=== PATIENT | male | born 1950 | race Caucasian/White ===

== ENCOUNTER → 2021-04-04 | Outpatient (CLI) | payer MEDICARE ==
[2021-04-04 12:16] LABS: HCT 46.3 % (39.0-53.0); HGB 15.2 gm/dL (13.0-17.5); MCH 30.9 pg (25.0-35.0); MCHC 32.9 g/dL (31.0-37.0); Mean Platelet Volume 7.4; Platelet Count 179 k/uL (150-450); RBC 4.93 m/uL (4.30-5.90); RDW 13.3 % (11.5-15.5); WBC 7.8 k/uL (3.8-10.6)
[2021-04-04 12:29] LABS: Potassium 4.8 mmol/L (3.5-5.1)
== END | disposition home or self-care (01) ==
LOC: LABPAT 11:13
PROVIDERS: ATTEND Internal Medicine Cardiovascular Disease
DX: Z01.812 Encounter for preprocedural laboratory examination (principal); I25.5 Ischemic cardiomyopathy
CPT/HCPCS: 36415; 80051; 82565; 84520; 85027

== ENCOUNTER 2021-04-09 | Day surgery (SDC) | payer MEDICARE | END 2021-04-09 12:13 | disposition home or self-care (01) | DX: Z45.02 Encounter for adjustment and management of automatic implantable cardiac defibrillator (principal); I25.2 Old myocardial infarction; I25.5 Ischemic cardiomyopathy; Z20.822 Contact with and (suspected) exposure to COVID-19; E78.5 Hyperlipidemia, unspecified; K21.9 Gastro-esophageal reflux disease without esophagitis; Z79.899 Other long term (current) drug therapy; I10 Essential (primary) hypertension | CPT/HCPCS: 93641; 33262; 87635; 71045; C1722; J2250; J0690; J2001; J3010; J2704 ==

== ENCOUNTER 2022-06-20 16:32 | Inpatient (IN) | payer MEDICARE ==
[2022-06-20] MEDS ORDERED: IPRATROPIUM 0.5 MG/2.5 ML NEBU INHALATION STA (17:12)
[2022-06-20] MEDS ORDERED: ALBUTEROL NEBULIZED 2.5 MG/3 ML INHALATION STA (17:12)
[2022-06-20] MEDS ORDERED: DEXAMETHASONE SOD PHOSPHATE 10 MG/ML 1 ML VIAL IV STA (17:13)
--- NOTE | 2022-06-20 17:20 | ED ---
General Adult HPI - General Chief complaint: Shortness of Breath Stated complaint: Chest pains, Sinus infection, DARWIN Time Seen by Provider: 06/20/22 17:06 Source: patient Mode of arrival: ambulatory Limitations: no limitations - History of Present Illness Initial comments: Dictation was produced using [employer] dictation software. please excuse any gr ammatical, word or spelling errors. Chief Complaint: 71-year-old male presents emergency department for acute onset dyspnea History of Present Illness: Patient is 71-year-old male who has past medical history of AICD presents to the emergency room for acute onset shortness of breath. He states his symptoms began last night. Since yesterday's been having a productive cough. Patient also complains of diaphoresis. Patient denies any pulmonary history. He does report heart failure. He has an AICD placed for cardiomyopathy. Denies any fever or chills. Denies any obvious sick contacts. The ROS documented in this emergency department record has been reviewed and confirmed by me. Those systems with pertinent positive or negative responses have been documented in the HPI. All other systems are other negative and/or noncontributory. PHYSICAL EXAM: General Impression: Alert and oriented x3, dyspneic, pale and diaphoretic HEENT: Normocephalic atraumatic, extra-ocular movements intact, pupils equal and reactive to light bilaterally, mucous membranes moist. Cardiovascular: Heart regular rate and rhythm Chest: Dyspneic, bilateral breath sounds without any obvious wheezing, [id number] bedside ultrasound did not show any B lines Abdomen: abdomen soft, non-tender, non-distended, no organomegaly Musculoskeletal: Pulses present and equal in all extremities, no peripheral edema Motor: no focal deficits noted Neurological: CN II-XII grossly intact, no focal motor or sensory deficits noted Skin: Diaphoretic Psych: Normal affect and mood ED course: 71-year-old male presents emergency department for dyspnea signs upon arrival shows 80% on room air, tachycardia of 101 no hypotension or pyrexia. Point of care bedside ultrasound did not suggest heart failure. Patient given breathing treatment with significant improvement after several minutes of updraft. Laboratory evaluation obtained. CBC remarkable. Coag panel is negative. D-dimer is negative. Metabolic panel is within acceptable limits. Cardiac workup is negative. 4 panel viral PCR is negative. Chest x-rays unremarkable. Patient transitioned to nasal cannula. He is reevaluated after breathing treatment of her symptoms. Given patient's presentation upon arrival patient likely benefit from hospital admission for respiratory monitoring and pulmonology consultation. Admitted to [facility] hospitalist group. EKG interpretation: Ventricular rate 1-2, sinus tachycardia,. Interval 170, QS 86, QTC 44. No [place] prolongation, no QTC prolongation, no ST or T-wave changes noted. EKG compared to 01/22/2016 showing no changes. Overall, this EKG is unremarkable - Related Data Home Medications Medication Instructions Recorded Confirmed Digoxin [Lanoxin] 250 mcg PO 1800 01/17/16 04/09/21 Furosemide [Lasix] 20 mg PO 1800 01/17/16 04/09/21 Metoprolol Tartrate 25 mg PO 1800 01/17/16 04/09/21 Potassium Chloride [Klor-Con 20] 20 meq PO 1800 01/17/16 04/09/21 Simvastatin [Zocor] 40 mg PO 1800 01/17/16 04/09/21 Spironolactone [Aldactone] 12.5 mg PO 1800 01/17/16 04/09/21 captopriL [Capoten] 12.5 mg PO 1800 01/17/16 04/09/21 Previous Rx's Medication Instructions Recorded Cephalexin [Keflex] 500 mg PO Q8HR 1 Days #10 cap 04/09/21 Allergies Allergy/AdvReac Type Severity Reaction Status Date / Time No Known Allergies Allergy Verified 06/20/22 17:06 Review of Systems ROS Statement: Those systems with pertinent positive or pertinent negative responses have been documented in the HPI. ROS Other: All systems not noted in ROS Statement are negative. Past Medical History Past Medical History: Hyperlipidemia, Myocardial Infarction ([place]), Skin Disorder Additional Past Medical History / Comment(s): "40% functioning of heart", hx ulcer, sore on rt arm, hemorrhoids, Last Myocardial Infarction Date:: 2005 History of Any Multi-Drug Resistant Organisms: None Reported Past Surgical History: AICD, Heart Catheterization With Stent, Hernia Repair Additional Past Surgical History / Comment(s): 2 stents Past Anesthesia/Blood Transfusion Reactions: Motion Sickness Date of Last Stent Placement:: 2005 Type of Cardiac Device: AICD Device Placement Date:: 2010 Past Psychological History: No Psychological Hx Reported Smoking Status: Never smoker - Past Family History Mother Family Medical History: Cancer General Exam Limitations: no limitations Course Vital Signs 06/20/22 06/20/22 06/20/22 17:02 17:06 17:44 Temperature 97.9 F Pulse Rate 101 H 112 H Respiratory 20 18 Rate Blood Pressure 142/81 130/76 O2 Sat by Pulse 80 L 92 L 92 L Oximetry Medical Decision Making - Lab Data Result diagrams: 06/20/22 17:41 06/20/22 17:41 Lab Results 06/20/22 06/20/22 06/20/22 Range/Units 17:41 17:41 17:41 WBC 12.1 H (3.8-10.6) k/uL RBC 5.02 (4.30-5.90) m/uL Hgb 16.0 (13.0-17.5) gm/dL Hct 47.5 (39.0-53.0) % MCV 94.7 (80.0-100.0) fL MCH 32.0 (25.0-35.0) pg MCHC 33.7 (31.0-37.0) g/dL RDW 12.8 (11.5-15.5) % Plt Count 192 (150-450) k/uL MPV 8.1 Neutrophils % 90 % Lymphocytes % 4 % Monocytes % 4 % Eosinophils % 1 % Basophils % 0 % Neutrophils # 10.9 H (1.3-7.7) k/uL Lymphocytes # 0.5 L (1.0-4.8) k/uL Monocytes # 0.5 (0-1.0) k/uL Eosinophils # 0.1 (0-0.7) k/uL Basophils # 0.0 (0-0.2) k/uL PT 10.1 (9.0-12.0) sec INR 0.9 (<1.2) APTT 24.9 (22.0-30.0) sec D-Dimer 0.45 (<0.60) mg/L FEU Sodium 138 (137-145) mmol/L Potassium 4.7 (3.5-5.1) mmol/L Chloride 96 L (98-107) mmol/L Carbon Dioxide 27 (22-30) mmol/L Anion Gap 15 mmol/L BUN 18 (9-20) mg/dL Creatinine 0.87 (0.66-1.25) mg/dL Est GFR (CKD-EPI)AfAm >90 (>60 ml/min/1.73 sqM) Est GFR (CKD-EPI)NonAf 87 (>60 ml/min/1.73 sqM) Glucose 126 H (74-99) mg/dL Plasma Lactic Acid [place] (0.7-2.0) mmol/L Calcium 9.4 (8.4-10.2) mg/dL Magnesium 1.9 (1.6-2.3) mg/dL Total Bilirubin 1.2 (0.2-1.3) mg/dL AST 49 (17-59) U/L ALT 43 (4-49) U/L Alkaline Phosphatase 63 (38-126) U/L Troponin I (0.000-0.034) ng/mL NT-Pro-B Natriuret Pep pg/mL Total Protein 7.9 (6.3-8.2) g/dL Albumin 5.0 (3.5-5.0) g/dL Influenza Type A (PCR) (Not Detectd) Influenza Type B (PCR) (Not Detectd) RSV (PCR) (Not Detectd) SARS-CoV-2 (PCR) (Not Detectd) 06/20/22 06/20/22 06/20/22 Range/Units 17:41 17:41 17:41 WBC (3.8-10.6) k/uL RBC (4.30-5.90) m/uL Hgb (13.0-17.5) gm/dL Hct (39.0-53.0) % MCV (80.0-100.0) fL MCH (25.0-35.0) pg MCHC (31.0-37.0) g/dL RDW (11.5-15.5) % Plt Count (150-450) k/uL MPV Neutrophils % % Lymphocytes % % Monocytes % % Eosinophils % % Basophils % % Neutrophils # (1.3-7.7) k/uL Lymphocytes # (1.0-4.8) k/uL Monocytes # (0-1.0) k/uL Eosinophils # (0-0.7) k/uL Basophils # (0-0.2) k/uL PT (9.0-12.0) sec INR (<1.2) APTT (22.0-30.0) sec D-Dimer (<0.60) mg/L FEU Sodium (137-145) mmol/L Potassium (3.5-5.1) mmol/L Chloride (98-107) mmol/L Carbon Dioxide (22-30) mmol/L Anion Gap mmol/L BUN (9-20) mg/dL Creatinine (0.66-1.25) mg/dL Est GFR (CKD-EPI)AfAm (>60 ml/min/1.73 sqM) Est GFR (CKD-EPI)NonAf (>60 ml/min/1.73 sqM) Glucose (74-99) mg/dL Plasma Lactic Acid [place] 1.5 (0.7-2.0) mmol/L Calcium (8.4-10.2) mg/dL Magnesium (1.6-2.3) mg/dL Total Bilirubin (0.2-1.3) mg/dL AST (17-59) U/L ALT (4-49) U/L Alkaline Phosphatase (38-126) U/L Troponin I <0.012 (0.000-0.034) ng/mL NT-Pro-B Natriuret Pep 311 pg/mL Total Protein (6.3-8.2) g/dL Albumin (3.5-5.0) g/dL Influenza Type A (PCR) (Not Detectd) Influenza Type B (PCR) (Not Detectd) RSV (PCR) (Not Detectd) SARS-CoV-2 (PCR) (Not Detectd) 06/20/22 Range/Units 17:41 WBC (3.8-10.6) k/uL RBC (4.30-5.90) m/uL Hgb (13.0-17.5) gm/dL Hct (39.0-53.0) % MCV (80.0-100.0) fL MCH (25.0-35.0) pg MCHC (31.0-37.0) g/dL RDW (11.5-15.5) % Plt Count (150-450) k/uL MPV Neutrophils % % Lymphocytes % % Monocytes % % Eosinophils % % Basophils % % Neutrophils # (1.3-7.7) k/uL Lymphocytes # (1.0-4.8) k/uL Monocytes # (0-1.0) k/uL Eosinophils # (0-0.7) k/uL Basophils # (0-0.2) k/uL PT (9.0-12.0) sec INR (<1.2) APTT (22.0-30.0) sec D-Dimer (<0.60) mg/L FEU Sodium (137-145) mmol/L Potassium (3.5-5.1) mmol/L Chloride (98-107) mmol/L Carbon Dioxide (22-30) mmol/L Anion Gap mmol/L BUN (9-20) mg/dL Creatinine (0.66-1.25) mg/dL Est GFR (CKD-EPI)AfAm (>60 ml/min/1.73 sqM) Est GFR (CKD-EPI)NonAf (>60 ml/min/1.73 sqM) Glucose (74-99) mg/dL Plasma Lactic Acid [place] (0.7-2.0) mmol/L Calcium (8.4-10.2) mg/dL Magnesium (1.6-2.3) mg/dL Total Bilirubin (0.2-1.3) mg/dL AST (17-59) U/L ALT (4-49) U/L Alkaline Phosphatase (38-126) U/L Troponin I (0.000-0.034) ng/mL NT-Pro-B Natriuret Pep pg/mL Total Protein (6.3-8.2) g/dL Albumin (3.5-5.0) g/dL Influenza Type A (PCR) Not Detected (Not Detectd) Influenza Type B (PCR) Not Detected (Not Detectd) RSV (PCR) Not Detected (Not Detectd) SARS-CoV-2 (PCR) Not Detected (Not Detectd) Critical Care Time Critical Care Time: Yes Total Critical Care Time: 33 Disposition Clinical Impression: Respiratory failure Disposition: ADMITTED IP TO THIS HOSP Condition: Serious Referrals: James Guillen DO [Primary Care Provider] - 1-2 days Decision Time: 18:49
[2022-06-20 17:49] LABS: Basophils % (A) 0 %; Eosinophils # (A) 0.1 k/uL (0-0.7); Eosinophils % (A) 1 %; HCT 47.5 % (39.0-53.0); Lymphocytes # (A) 0.5 k/uL (1.0-4.8); Lymphocytes % (A) 4 %; MCHC 33.7 g/dL (31.0-37.0); MCV 94.7 fL (80.0-100.0); Mean Platelet Volume 8.1; Monocytes # (A) 0.5 k/uL (0-1.0); Monocytes % (A) 4 %; Neutrophils # (A) 10.9 k/uL (1.3-7.7); Neutrophils % (A) 90 %; Platelet Count 192 k/uL (150-450); RBC 5.02 m/uL (4.30-5.90); RDW 12.8 % (11.5-15.5); WBC 12.1 k/uL (3.8-10.6)
--- NOTE | 2022-06-20 17:51 | XR ---
EXAMINATION TYPE: XR chest 1V portable DATE OF EXAM: 06/20/2022 COMPARISON: 04/09/2021 HISTORY: Short of breath TECHNIQUE: FINDINGS: There is no heart failure nor confluent pneumonic infiltrate. There is left axillary pacema ker. Costophrenic angles are clear. IMPRESSION: No active cardiopulmonary disease. No change.
[2022-06-20 18:02] LABS: ALT 43 U/L (4-49); AST 49 U/L (17-59); African American GFR (CKD) >90 (>60 ml/min/1.73 sqM); Alkaline Phosphatase 63 U/L (38-126); Anion Gap 15 mmol/L; Blood Urea Nitrogen 18 mg/dL (9-20); Calcium 9.4 mg/dL (8.4-10.2); Carbon Dioxide 27 mmol/L (22-30); Chloride 96 mmol/L (98-107); Glucose 126 mg/dL (74-99); Magnesium 1.9 mg/dL (1.6-2.3); Non-African American GFR(CKD) 87 (>60 ml/min/1.73 sqM); Sodium 138 mmol/L (137-145); Total Bilirubin 1.2 mg/dL (0.2-1.3); Total Protein 7.9 g/dL (6.3-8.2)
[2022-06-20 18:03] LABS: Potassium 4.7 mmol/L (3.5-5.1)
[2022-06-20 18:06] LABS: INR 0.9 (<1.2); Partial Thromboplastin Time 24.9 sec (22.0-30.0); Prothrombin Time 10.1 sec (9.0-12.0)
[2022-06-20] MEDS ORDERED: NALOXONE 0.4 MG/ML 1 ML VIAL IVP PRN (18:46)
[2022-06-20] MEDS ORDERED: ACETAMINOPHEN TAB 325 MG TAB PO PRN (18:46)
[2022-06-20] MEDS: IPRATROPIUM-ALBUTEROL 3 ML NEB INHALATION SCH (20:21)
[2022-06-21] MEDS: IPRATROPIUM-ALBUTEROL 3 ML NEB INHALATION SCH ×4 (07:21→20:00)
[2022-06-21] MEDS: predniSONE 20 MG TAB PO SCH (08:29)
[2022-06-21] MEDS: DOXYCYCLINE 100 MG CAP PO SCH ×2 (13:39→20:16)
--- NOTE | 2022-06-21 13:40 | P.CNPUL ---
History of Present Illness Consult date: 06/21/22 Requesting physician: Donnell Early Reason for consult: dyspnea, hypoxemia, other Chief complaint: Shortness of breath. History of present illness: Pulmonary consult dated 06/21/2022. 71-year-old who was seen in the emergency department on June 20. He apparently came in because of shortness of breath. He states that he apparently had shortness of breath for about a day or so prior to admission. He also complains of a bit of a cough, which is occasionally productive. There is no fever or chills. There was no chest pain or chest discomfort. The patient was seen in the emergency room. Chest x-ray was normal. He was admitted with shortness of breath and hypoxemia. Apparently initially his saturations were in the 80s. Currently, he is on 2 L of oxygen, and he is not receiving any IV fluids. He does not appear to be any distress. No conversational dyspnea, or use of accessory muscles. No audible wheezing. White count 12.1, hemoglobin 16, hematocrit 47.5, and platelet count 292,000. Coagulation profiles are all normal including a d-dimer of 0.45. Chemistry is essentially normal. Glucose 126, chloride 96. Troponins were negative. N-terminal proBNP was normal. T esting for respiratory syncytial virus, influenza, and coronavirus, were all negative. Chest x-ray shows an AICD device, but otherwise, the chest x-ray is normal. The patient apparently is a lifelong nontobacco user. He does have a history of hyperlipidemia, myocardial infarction, cardiomyopathy, CAD with stent placement, and previous hernia repair. Review of Systems REVIEW OF SYSTEMS: CONSTITUTIONAL: [Negative.] NEUROLOGIC: [ Negative.] HEENT: [ Negative.] CARDIAC: [Negative.] PULMONARY: Shortness of breath, cough, with occasional phlegm production. GI: [Negative.] : [Negative.] RHEUMATOLOGIC: [ Negative.] IMMUNOLOGIC: [ Negative.] ENDOCRINE: [Negative. ] DERMATOLOGIC: [Negative.] Past Medical History Past Medical History: Hyperlipidemia, Myocardial Infarction ([place]), Skin Disorder Additional Past Medical History / Comment(s): "40% functioning of heart", hx ulcer, sore on rt arm, hemorrhoids, Last Myocardial Infarction Date:: 2005 History of Any Multi-Drug Resistant Organisms: None Reported Past Surgical History: AICD, Heart Catheterization With Stent, Hernia Repair Additional Past Surgical History / Comment(s): 2 stents Past Anesthesia/Blood Transfusion Reactions: Motion Sickness Date of Last Stent Placement:: 2005 Type of Cardiac Device: AICD Device Placement Date:: 2010 Past Psychological History: No Psychological Hx Reported Smoking Status: Never smoker - Past Family History Mother Family Medical History: Cancer Medications and Allergies Home Medications Medication Instructions Recorded Confirmed Type Digoxin [Lanoxin] 250 mcg PO DAILY@169901/17/16 06/20/22 History Furosemide [Lasix] 20 mg PO DAILY@169901/17/16 06/20/22 History Metoprolol Tartrate 25 mg PO DAILY@169901/17/16 06/20/22 History Potassium Chloride [Klor-Con 20] 20 meq PO DAILY@169901/17/16 06/20/22 History Simvastatin [Zocor] 40 mg PO DAILY@169901/17/16 06/20/22 History Spironolactone [Aldactone] 12.5 mg PO DAILY@169901/17/16 06/20/22 History captopriL [Capoten] 12.5 mg PO DAILY@169901/17/16 06/20/22 History Allergies Allergy/AdvReac Type Severity Reaction Status Date / Time No Known Allergies Allergy Verified 06/20/22 17:06 Physical Exam Osteopathic Statement: *. No significant issues noted on an osteopathic structural exam other than those noted in the History and Physical/Consult. Vitals: Vital Signs Temp Pulse Pulse Resp BP BP Pulse Ox 06/21/22 13:08 98.7 F 96 20 118/66 92 L 06/21/22 11:16 96 06/21/22 11:03 92 06/21/22 08:00 97.9 F 107 H 18 131/74 94 L 06/21/22 07:33 102 H 06/21/22 07:23 96 96 06/21/22 06:39 80 18 106/55 98 06/21/22 04:21 82 06/21/22 00:33 105 H 18 120/82 93 L 06/20/22 20:31 101 H 06/20/22 20:24 99 06/20/22 17:44 112 H 18 130/76 92 L 06/20/22 17:06 92 L 06/20/22 17:02 97.9 F 101 H 20 142/81 80 L Intake and Output 06/20/22 06/21/22 06/21/22 22:59 06:59 14:59 Output Total 700 800 Balance -700 -800 Output: Urine 700 800 Other: # Voids 3 Weight 96.615 kg 96.615 kg No acute distress, oriented 3. No respiratory distress, audible wheezing, or use of accessory muscles. The patient is currently on 2 L of oxygen. HEENT examination is grossly unremarkable. Neck supple. Full range of motion. No adenopathy thyromegaly or neck vein dist ention. Cardiovascular examination reveals regular rhythm rate. S1-S2 normal. No S3 or S4. No discernible murmur noted. Heart rate 90 bpm. Lungs reveal mild rhonchi. No wheezes. No crackles. Breath sounds equal bilaterally. Saturations are 94% on 2 L. Abdomen soft bowel sounds are heard. No masses or tenderness. Extremities are intact. No cyanosis clubbing or edema. Skin is without rash or lesion. Neurologic examination is brief but nonfocal. Results - Laboratory Findings CBC and BMP: 06/20/22 17:41 06/20/22 17:41 PT/INR, D-dimer PT 10.1 sec (9.0-12.0) 06/20/22 17:41 INR 0.9 (<1.2) 06/20/22 17:41 D-Dimer 0.45 mg/L FEU (<0.60) 06/20/22 17:41 Abnormal lab findings: Abnormal Labs 06/20/22 06/20/22 17:41 17:41 WBC 12.1 H Neutrophils # 10.9 H Lymphocytes # 0.5 L Chloride 96 L Glucose 126 H - Diagnostic Findings Chest x-ray: image reviewed Assessment and Plan Assessment: Acute tracheobronchitis with bronchospasm, and resultant hypoxemia. History of cardiomyopathy, status post AICD. History of CAD, with previous stent placement. History of myocardial infarction. History of hyperlipidemia. Plan: Plan dated 06/21/2022. The patient was started on prednisone by the ER physician. In addition, the patient was given updrafts in the form of albuterol sulfate and ipratropium bromide. The patient was also placed on doxycycline 100 mg twice a day. Additional recommendations and suggestions are forthcoming. We'll continue to follow. Hopeful discharge in the next 24-48 hours. Time with Patient: Greater than 30
--- NOTE | 2022-06-21 16:20 | P.HPIM ---
History of Present Illness H&P Date: 06/21/22 Chief Complaint: Shortness of Breath 71-year-old male who has past medical history of AICD presents to the emergency room for acute onset shortness of breath. He states his symptoms began last night. Since yesterday's been having a productive cough. Patient also complain s of diaphoresis. Patient denies any pulmonary history. He does report heart failure. He has an AICD placed for cardiomyopathy. Denies any fever or chills. Denies any obvious sick contacts. Point of care bedside ultrasound did not suggest heart failure. Patient given breathing treatment with significant improvement after several minutes of updraft. Laboratory evaluation obtained. CBC remarkable. Coag panel is negative. D-dimer is negative. Metabolic panel is within acceptable limits. Cardiac workup is negative. 4 panel viral PCR is negative. Chest x-rays unremarkable. Patient transitioned to nasal cannula. EKG interpretation: Ventricular rate 1-2, sinus tachycardia,. Interval 170, QS 86, QTC 44. No [place] prolongation, no QTC prolongation, no ST or T-wave changes noted. EKG compared to 01/22/2016 showing no changes. Overall, this EKG is unremarkable Review of Systems REVIEW OF SYSTEMS: CONSTITUTIONAL: No fever, no malaise, no fatigue. HEENT: No recent visual problems or hearing problems. Denied any sore throat. CARDIOVASCULAR: No chest pain, orthopnea, PND, no palpitations, no syncope. PULMONARY: No shortness of breath, no cough, no hemoptysis. GASTROINTESTINAL: No diarrhea, no nausea, no vomiting, no abdominal pain. NEUROLOGICAL: No headaches, no weakness, no numbness. HEMATOLOGICAL: Denies any bleeding or petechiae. GENITOURINARY: Denies any burning micturition, frequency, or urgency. MUSCULOSKELETAL/RHEUMATOLOGICAL: Denies any joint pain, swelling, or any muscle pain. ENDOCRINE: Denies any polyuria or polydipsia. The rest of the 14-point review of systems is negative. Past Medical History Past Medical History: Hyperlipidemia, Myocardial Infarction ([place]), Skin Disorder Additional Past Medical History / Comment(s): "40% functioning of heart", hx ulcer, sore on rt arm, hemorrhoids, Last Myocardial Infarction Date:: 2005 History of Any Multi-Drug Resistant Organisms: None Reported Past Surgical History: AICD, Heart Catheterization With Stent, Hernia Repair Additional Past Surgical History / Comment(s): 2 stents Past Anesthesia/Blood Transfusion Reactions: Motion Sickness Date of Last Stent Placement:: 2005 Type of Cardiac Device: AICD Device Placement Date:: 2010 Past Psychological History: No Psychological Hx Reported Smoking Status: Never smoker - Past Family History Mother Family Medical History: Cancer Medications and Allergies Home Medications Medication Instructions Recorded Confirmed Type Digoxin [Lanoxin] 250 mcg PO DAILY@169901/17/16 06/20/22 History Furosemide [Lasix] 20 mg PO DAILY@169901/17/16 06/20/22 History Metoprolol Tartrate 25 mg PO DAILY@169901/17/16 06/20/22 History Potassium Chloride [Klor-Con 20] 20 meq PO DAILY@169901/17/16 06/20/22 History Simvastatin [Zocor] 40 mg PO DAILY@169901/17/16 06/20/22 History Spironolactone [Aldactone] 12.5 mg PO DAILY@169901/17/16 06/20/22 History captopriL [Capoten] 12.5 mg PO DAILY@169901/17/16 06/20/22 History Allergies Allergy/AdvReac Type Severity Reaction Status Date / Time No Known Allergies Allergy Verified 06/20/22 17:06 Physical Exam Vitals: Vital Signs Temp Pulse Pulse Resp BP BP Pulse Ox 06/21/22 08:00 97.9 F 107 H 18 131/74 94 L 06/21/22 07:33 102 H 06/21/22 07:23 96 96 06/21/22 06:39 80 18 106/55 98 06/21/22 04:21 82 06/21/22 00:33 105 H 18 120/82 93 L 06/20/22 20:31 101 H 06/20/22 20:24 99 06/20/22 17:44 112 H 18 130/76 92 L 06/20/22 17:06 92 L 06/20/22 17:02 97.9 F 101 H 20 142/81 80 L Intake and Output 06/20/22 06/21/22 06/21/22 22:59 06:59 14:59 Output Total 700 800 Balance -700 -800 Output: Urine 700 800 Other: # Voids 3 Weight 96.615 kg No acute distress, oriented 3. No respiratory distress, audible wheezing, or use of accessory muscles. The patient is currently on 2 L of oxygen. HEENT examination is grossly unremarkable. Neck supple. Full range of motion. No adenopathy thyromegaly or neck vein distention. Cardiovascular examination reveals regular rhythm rate. S1-S2 normal. No S3 or S4. No discernible murmur noted. Heart rate 90 bpm. Lungs reveal mild rhonchi. No wheezes. No crackles. Breath sounds equal bilaterally. Saturations are 94% on 2 L. Abdomen soft bowel sounds are heard. No masses or tenderness. Extremities are intact. No cyanosis clubbing or edema. Skin is without rash or lesion. Neurologic examination is brief but nonfocal. Results CBC & Chem 7: 06/20/22 17:41 06/20/22 17:41 Labs: Abnormal Lab Results - Last 24 Hours (Table) 06/20/22 06/20/22 Range/Units 17:41 17:41 WBC 12.1 H (3.8-10.6) k/uL Neutrophils # 10.9 H (1.3-7.7) k/uL Lymphocytes # 0.5 L (1.0-4.8) k/uL Chloride 96 L (98-107) mmol/L Glucose 126 H (74-99) mg/dL Assessment and Plan Assessment: 1. Dyspnea/hypoxia; acute tracheobronchitis/bronchospasm - Patient has been placed on prednisone at 50 mg daily; we will continue with current dose; DuoNeb nebulizer treatment 4 times a day and when necessary - Patient is placed on doxycycline 100 mg twice a day 2. Cardiomyopathy; status post AICD - Patient is currently on digoxin, captopril, Lasix, Aldactone and statin therapy 3. History of CAD; previous stent placement - History of [place] in the past; continue with beta blockers and statin therapy 4. Hyperlipidemia; Zocor 40 mg daily 5. Hypertension; captopril 12.5 mg daily; metoprolol 25 mg daily DVT prophylaxis; SCDs CODE STATUS; full code
[2022-06-21] MEDS: ATORVASTATIN 20 MG TAB PO SCH (17:17)
[2022-06-21] MEDS: SPIRONOLACTONE 25 MG TAB PO SCH (17:18)
[2022-06-21] MEDS: DIGOXIN 250 MCG TAB PO SCH (17:18)
[2022-06-21] MEDS: FUROSEMIDE 20 MG TAB PO SCH (17:18)
[2022-06-21] MEDS: POTASSIUM CHLORIDE ER 20 MEQ TAB.ER PO SCH (17:18)
[2022-06-21] MEDS: METOPROLOL TARTRATE 25 MG TAB PO SCH (17:18)
[2022-06-22] MEDS: IPRATROPIUM-ALBUTEROL 3 ML NEB INHALATION SCH ×4 (07:19→18:56)
[2022-06-22] MEDS: predniSONE 20 MG TAB PO SCH (07:21)
[2022-06-22] MEDS: DOXYCYCLINE 100 MG CAP PO SCH ×2 (07:21→22:14)
[2022-06-22 09:28] LABS: Basophils # (A) 0.01 X 10*3/uL (0.00-0.10); Basophils % (A) 0.1 %; Eosinophils # (A) 0.07 X 10*3/uL (0.04-0.35); Eosinophils % (A) 0.5 %; HCT 44.9 % (39.6-50.0); HGB 14.6 g/dL (13.0-17.0); Immature Grans, Automated 0.4 %; Lymphocytes # (A) 1.63 X 10*3/uL (0.90-5.00); Lymphocytes % (A) 12.2 %; MCH 30.9 pg (27.0-32.0); MCHC 32.5 g/dL (32.0-37.0); MCV 95.1 fL (80.0-97.0); Mean Platelet Volume 10.2 fL (9.5-12.2); Monocytes # (A) 1.18 X 10*3/uL (0.20-1.00); Monocytes % (A) 8.8 %; NRBC Per 100 WBC 0 /100 WBCS (0.0-0.0); Neutrophils # (A) 10.45 X 10*3/uL (1.80-7.70); Platelet Count 212 X 10*3/uL (140-440); RBC 4.72 X 10*6/uL (4.40-5.60); RDW 13.1 % (11.5-14.5); WBC 13.39 X 10*3/uL (4.50-10.00)
[2022-06-22 09:42] LABS: African American GFR (CKD) 77.9 (60.0-200.0); Anion Gap 10.6 mmol/L (10.00-18.00); BUN/Creat Ratio 21.55 Ratio (12.00-20.00); Blood Urea Nitrogen 23.7 mg/dL (9.0-27.0); Carbon Dioxide 29.4 mmol/L (20.0-27.5); Non-African American GFR(CKD) 67.2 (60.0-200.0); Potassium 4.5 mmol/L (3.5-5.5)
--- NOTE | 2022-06-22 12:03 | P.PN ---
Subjective Progress Note Date: 06/22/22 Principal diagnosis: Shortness of breath/hypoxemia. Pulmonary consult dated 06/21/2022. 71-year-old who was seen in the emergency department on June 20. He apparently came in because of shortness of breath. He states that he apparently had shortness of breath for about a day or so prior to admission. He also complains of a bit of a cough, which is occasionally productive. There is no fever or chills. There was no chest pain or chest discomfort. The patient was seen in the emergency room. Chest x-ray was normal. He was admitted with shortness of breath and hypoxemia. Apparently initially his saturations were in the 80s. Currently, he is on 2 L of oxygen, and he is not receiving any IV fluids. He does not appear to be any distress. No conversational dyspnea, or use of accessory muscles. No audible wheezing. White count 12.1, hemoglobin 16, hematocrit 47.5, and platelet count 292,000. Coagulation profiles are all normal including a d-dimer of 0.45. Chemistry is essentially normal. Glucose 126, chloride 96. Troponins were negative. N-terminal proBNP was normal. Testing for respiratory syncytial virus, influenza, and coronavirus, were all n egative. Chest x-ray shows an AICD device, but otherwise, the chest x-ray is normal. The patient apparently is a lifelong nontobacco user. He does have a history of hyperlipidemia, myocardial infarction, cardiomyopathy, CAD with stent placement, and previous hernia repair. Progress note dated 06/22/2022. Currently, the patient's on 2 L. Saturations are 93%. He's not receiving any IV fluids. The patient was admitted to the hospital with a diagnosis of hypoxemia, and acute bronchitis. Chest x-ray did not show a infiltrate/pneumonia. The patient does have a history of hyperlipidemia, my ocardial infarction, cardiomyopathy, CAD, stent placement, and previous AICD placement. Currently labs include a white count of 13.4, hemoglobin 14.6, hematocrit 44.9, and a platelet count of 212,000. Sodium 142, potassium 4.5, chlorides 102, CO2 29, BUN 24, creatinine 1.1. Testing for influenza A, influenza B, respiratory syncytial virus, and coronavirus, were all negative. The patient was given breathing treatments, and prednisone. He was also given doxycycline by the hospital service. Objective - Vital Signs Vital signs: Vital Signs Temp 98 F 06/22/22 11:36 Pulse 90 06/22/22 11:36 Resp 20 06/22/22 11:36 BP 111/70 06/22/22 11:36 Pulse Ox 95 06/22/22 11:36 FiO2 Intake & Output 06/21/22 06/22/22 06/22/22 18:59 06:59 18:59 Intake Total 485 120 Balance 485 120 Weight 96.615 kg Intake: Oral 485 120 Other: Voiding Method Toilet Urinal # Voids 4 2 - Exam No acute distress, oriented 3. No respiratory distress, audible wheezing, or use of accessory muscles. The patient is currently on 2 L of oxygen. HEENT examination is grossly unremarkable. Neck supple. Full range of motion. No adenopathy thyromegaly or neck vein distention. Cardiovascular examination reveals regular rhythm rate. S1-S2 normal. No S3 or S4. No discernible murmur noted. Heart rate 88 bpm. Lungs reveal mild rhonchi. No wheezes. No crackles. Breath sounds equal bilaterally. Saturations are 93% on 2 L. Abdomen soft bowel sounds are heard. No masses or tenderness. Extremities are intact. No cyanosis clubbing or edema. Skin is without rash or lesion. Neurologic examination is brief but nonfocal. - Labs CBC & Chem 7: 06/22/22 05:18 06/22/22 05:18 Labs: Abnormal Lab Results - Last 24 Hours (Table) 06/22/22 06/22/22 Range/Units 05:18 05:18 WBC 13.39 H (4.50-10.00) X 10*3/uL Immature Gran # 0.05 H (0.00-0.04) X 10*3/uL Neutrophils # 10.45 H (1.80-7.70) X 10*3/uL Monocytes # 1.18 H (0.20-1.00) X 10*3/uL Carbon Dioxide 29.4 H (20.0-27.5) mmol/L BUN/Creatinine Ratio 21.55 H (12.00-20.00) Ratio Assessment and Plan Assessment: Acute tracheobronchitis with bronchospasm, and resultant hypoxemia. History of cardiomyopathy, status post AICD. History of CAD, with previous stent placement. History of myocardial infarction. History of hyperlipidemia. Plan: Plan dated 06/21/2022. The patient was started on prednisone by the ER physician. In addition, the patient was given updrafts in the form of albuterol sulfate and ipratropium bromide. The patient was also placed on doxycycline 100 mg twice a day. Additional recommendations and suggestions are forthcoming. We'll continue to follow. Hopeful discharge in the next 24-48 hours. Plan dated 06/22/2022. The patient appears to be relatively stable. Respiratory we'll try to wean his oxygen off. He was given breathing treatments, prednisone and doxycycline. His chest x-ray did not reveal an infiltrate. We will continue to follow make recommendations along the way. Possible discharge in the next 24-48 hours or sooner. Prognosis is guarded. Time with Patient: Less than 30
--- NOTE | 2022-06-22 18:09 | P.PN ---
Subjective Progress Note Date: 06/22/22 Principal diagnosis: Dyspnea/hypoxia; acute tracheobronchitis/bronchospasm 71-year-old male who has past medical history of AICD presents to the emergency room for acute onset shortness of breath. He states his symptoms began last night. Since yesterday's been having a productive cough. Patient also complains of diaphoresis. Patient denies any pulmonary history. He does report heart failure. He has an AICD placed for cardiomyopathy. Denies any fever or chills. Denies any obvious sick contacts. Point of care bedside ultrasound did not suggest heart failure. Patient given breathing treatment with significant improvement after several minutes of updraft. Laboratory evaluation obtained. CBC remarkable. Coag panel is negative. D-dimer is negative. Metabolic panel is within acceptable limits. Cardiac workup is negative. 4 panel viral PCR is negative. Chest x-rays unremarkable. Patient transitioned to nasal cannula. EKG interpretation: Ventricular rate 1-2, sinus tachycardia,. Interval 170, QS 86, QTC 44. No [place] prolongation, no QTC prolongation, no ST or T-wave changes noted. EKG compared to 01/22/2016 showing no changes. Overall, this EKG is unremarkable 06/22/2022 patient is seen and evaluated in room at bedside. remains on O2 at 2 L per nasal cannula with O2 saturation of 93%. He's not receiving any IV fluids. The patient was admitted to the hospital with a diagnosis of hypoxemia, and acute bronchitis. Chest x-ray did not show a infiltrate/pneumonia. The patient does have a history of hyperlipidemia, myocardial infarction, cardiomyopathy, CAD, stent placement, and previous AICD placement. Currently labs include a white count of 13.4, hemoglobin 14.6, hematocrit 44.9, and a platelet count of 212,000. Sodium 142, potassium 4.5, chlorides 102, CO2 29, BUN 24, creatinine 1.1. Testing for influenza A, influenza B, respiratory syncytial virus, and coronavirus, were all negative. The patient was given breathing treatments, and prednisone. He was also given doxycycline -- Respiratory we'll try to wean his oxygen off. He was given breathing treatments, prednisone and doxycycline. His chest x-ray did not reveal an infiltrate. Possible discharge in the next 24-48 hours or sooner. Prognosis is guarded. Objective - Vital Signs Vital signs: Vital Signs Temp 98 F 06/22/22 11:36 Pulse 90 06/22/22 11:36 Resp 20 06/22/22 11:36 BP 111/70 06/22/22 11:36 Pulse Ox 95 06/22/22 11:36 FiO2 Intake & Output 06/21/22 06/22/22 06/22/22 18:59 06:59 18:59 Intake Total 485 120 Balance 485 120 Weight 96.615 kg Intake: Oral 485 120 Other: Voiding Method Toilet Urinal # Voids 4 2 - Exam No acute distress, oriented 3. No respiratory distress, audible wheezing, or use of accessory muscles. The patient is currently on 2 L of oxygen. HEENT examination is grossly unremarkable. Neck supple. Full range of motion. No adenopathy thyromegaly or neck vein distention. Cardiovascular examination reveals regular rhythm rate. S1-S2 normal. No S3 or S4. No discernible murmur noted. Heart rate 90 bpm. Lungs reveal mild rhonchi. No wheezes. No crackles. Breath sounds equal bilaterally. Saturations are 94% on 2 L. Abdomen soft bowel sounds are heard. No masses or tenderness. Extremities are intact. No cyanosis clubbing or edema. Skin is without rash or lesion. Neurologic examination is brief but nonfocal. - Labs CBC & Chem 7: 06/22/22 05:18 06/22/22 05:18 Labs: Abnormal Lab Results - Last 24 Hours (Table) 06/22/22 06/22/22 Range/Units 05:18 05:18 WBC 13.39 H (4.50-10.00) X 10*3/uL Immature Gran # 0.05 H (0.00-0.04) X 10*3/uL Neutrophils # 10.45 H (1.80-7.70) X 10*3/uL Monocytes # 1.18 H (0.20-1.00) X 10*3/uL Carbon Dioxide 29.4 H (20.0-27.5) mmol/L BUN/Creatinine Ratio 21.55 H (12.00-20.00) Ratio Assessment and Plan Assessment: 1. Dyspnea/hypoxia; acute tracheobronchitis/bronchospasm - Patient has been placed on prednisone at 50 mg daily; we will continue with current dose; DuoNeb nebulizer treatment 4 times a day and when necessary - Patient is placed on doxycycline 100 mg twice a day 2. Cardiomyopathy; status post AICD - Patient is currently on digoxin, captopril, Lasix, Aldactone and statin therapy 3. History of CAD; previous stent placement - History of [place] in the past; continue with beta blockers and statin therapy 4. Hyperlipidemia; Zocor 40 mg daily 5. Hypertension; captopril 12.5 mg daily; metoprolol 25 mg daily DVT prophylaxis; SCDs CODE STATUS; full code
[2022-06-22] MEDS: ATORVASTATIN 20 MG TAB PO SCH (18:15)
[2022-06-22] MEDS: FUROSEMIDE 20 MG TAB PO SCH (18:15)
[2022-06-22] MEDS: SPIRONOLACTONE 25 MG TAB PO SCH (18:16)
[2022-06-22] MEDS: DIGOXIN 250 MCG TAB PO SCH (18:16)
[2022-06-22] MEDS: POTASSIUM CHLORIDE ER 20 MEQ TAB.ER PO SCH (18:16)
[2022-06-22] MEDS: METOPROLOL TARTRATE 25 MG TAB PO SCH (18:16)
[2022-06-23] MEDS: IPRATROPIUM-ALBUTEROL 3 ML NEB INHALATION SCH ×3 (08:21→15:43)
[2022-06-23] MEDS: predniSONE 20 MG TAB PO SCH (08:57)
[2022-06-23] MEDS: DOXYCYCLINE 100 MG CAP PO SCH (08:57)
[2022-06-23 11:34] VITALS: BP 98/68; RESP 17; TEMP 98.2
[2022-06-23 11:42] VITALS: PULSE 74
--- NOTE | 2022-06-23 14:01 | P.PN ---
Subjective Progress Note Date: 06/23/22 71-year-old who was seen in the emergency department on June 20. He apparently came in because of shortness of breath. He states that he apparently had shortness of breath for about a day or so prior to admission. He also complains of a bit of a cough, which is occasionally productive. There is no fever or chills. There was no chest pain or chest discomfort. The patient was seen in the emergency room. Chest x-ray was normal. He was admitted with shortness of breath and hypoxemia. Apparently initially his saturations were in the 80s. Currently, he is on 2 L of oxygen, and he is not receiving any IV fluids. He does not appear to be any distress. No conversational dyspnea, or use of accessory muscles. No audible wheezing. White count 12.1, hemoglobin 16, hematocrit 47.5, and platelet count 292,000. Coagulation profiles are all normal including a d-dimer of 0.45. Chemistry is essentially normal. Glucose 126, chloride 96. Troponins were negative. N-terminal proBNP was normal. Testing for respiratory syncytial virus, influenza, and coronavirus, were all negative. Chest x-ray shows an AICD device, but otherwise, the chest x-ray is normal. The patient apparently is a lifelong nontobacco user. He does have a history of hyperlipidemia, myocardial infarction, cardiomyopathy, CAD with stent placement, and previous hernia repair. Progress note dated 06/22/2022. Currently, the patient's on 2 L. Saturations are 93%. He's not receiving any IV fluids. The patient was admitted to the hospital with a diagnosis of hypoxemia, and acute bronchitis. Chest x-ray did not show a infiltrate/pneumonia. The patient does have a history of hyperlipidemia, myocardial infarction, cardiomyopathy, CAD, stent placement, and previous AICD placement. Currently labs include a white count of 13.4, hemoglobin 14.6, hematocrit 44.9, and a platelet count of 212,000. Sodium 142, potassium 4.5, chlorides 102, CO2 29, BUN 24, creatinine 1.1. Testing for influenza A, influenza B, respiratory syncytial virus, and coronavirus, were all negative. The patient was given breathing treatments, and prednisone. He was also given doxycycline by the hospital service. Carrillo steroids which is final continue that 1 to be feeling better On today's evaluation of 06/23/2022, the patient is being seen for a follow-up. Overall, is doing better. His vital screen came back negative including influenza A and influenza B RSV and coronavirus. The patient was treated empirically with doxycycline and the patient is currently on a prednisone burst taper starting with 40 mg. His oxidation is improved and the patient is not using oxygen at this point in time. No fever. No chills. No signs of any acute bacterial infection. The patient is a lifetime nonsmoker. No history of asthma. Most of any previous respiratory infections or pneumonias. He is known to have cardiomyopathy and the patient has an AICD in place. ProBNP level was nonelevated. He is also known to have CAD and the patient has a coronary stent in place. Blood work shows some minor leukocytosis otherwise the rest of the blood work essentially within normal limits. Objective - Vital Signs Vital signs: Vital Signs Temp 98.2 F 06/23/22 11:04 Pulse 74 06/23/22 11:41 Resp 17 06/23/22 11:04 BP 98/68 06/23/22 11:04 Pulse Ox 93 L 06/23/22 11:04 FiO2 Intake & Output 06/22/22 06/23/22 06/23/22 18:59 06:59 18:59 Intake Total 240 360 Balance 240 360 Intake: Oral 240 360 Other: Voiding Method Toilet Toilet Urinal Urinal # Voids 4 3 - Exam No acute distress, oriented 3. No respiratory distress, audible wheezing, or use of accessory muscles. The patient is currently on room air oxygen HEENT examination is grossly unremarkable. Neck supple. Full range of motion. No adenopathy thyromegaly or neck vein distention. Cardiovascular examination reveals regular rhythm rate. S1-S2 normal. No S3 or S4. No discernible murmur noted. Heart rate 88 bpm. Lungs reveal mild rhonchi. No wheezes. No crackles. Breath sounds equal bilaterally. Abdomen soft bowel sounds are heard. No masses or tenderness. Extremities are intact. No cyanosis clubbing or edema. Skin is without rash or lesion. Neurologic examination is brief but nonfocal. - Labs CBC & Chem 7: 06/22/22 05:18 06/22/22 05:18 Assessment and Plan Plan: Acute tracheobronchitis with bronchospasm, and resultant hypoxemia. Clinically the patient is improving and the patient is currently on room air oxygen. He is on prednisone burst taper and he is also on doxycycline. History of cardiomyopathy, status post AICD. History of CAD, with previous stent placement. History of myocardial infarction. History of hyperlipidemia. Plan: Clinically stable. Complete a course of doxycycline for a total of 7 days Complete a prednisone burst taper starting with 40 mg to be tapered by 10 mg every 4 days We'll provide the patient Ventolin HFA 2 puffs every 4 hours on an as-needed basis Oxygenation is improved and the patient does not qualify for home O2 Continue cardiac medications Free for discharge from the pulmonary standpoint to be seen on outpatient basis if needed
--- NOTE | 2022-06-23 22:04 | P.DS ---
Providers Date of admission: 06/20/22 18:47 Attending physician: Donnell Early Consults: 06/20/22 18:46 Consult Physician Routine Consulting Provider: Danny Freire Reason/Comments: respitory failure Do you want consulting provider notified?: Yes Primary care physician: James Guillen [facility] Course: Diagnoses: Acute tracheobronchitis, improving Acute hypoxic respiratory failure, resolved and patient does not require oxygen upon discharge History of Cardiomyopathy; status post AICD History of coronary artery disease status post stent Hypertension Hyperlipidemia Hospital course: 71-year-old male who has past medical history of AICD presents to the emergency room for acute onset shortness of breath. He states his symptoms began last night. Since yesterday's been having a productive cough. Patient also complains of diaphoresis. Patient denies any pulmonary history. He does report heart failure. He has an AICD placed for cardiomyopathy. Denies any fever or chills. Patient's was admitted with acute truncal bronchitis, he was treated with prednisone and doxycycline, showed interval improvement. States negative. Patient today is back to baseline, he denies chest pain or dyspnea, no change in urine or bowel habits. A was cleared for discharge by the spinner open end on doxycycline and prednisone taper Problems and management plan were discussed with the patient and he verbalized understanding and acceptance Patient was found stable and can be discharged home however he needs follow-up as an outpatient. Patient was instructed to follow up with PCP Dr. Moreno within one week and patient agrees Patient was instructed to follow up with spinner open end Dr. Wray and 2-3 weeks and he agrees Physical exam Gen: patient is a AAOx3, no distress CVS: S1-S2, RRR, no murmur Lungs: B/L CTA, no wheezing Abdomen: soft, no distention, no tenderness, positive bowel sounds Extremity: no leg edema or induration Time spent more than 35 minutes Patient Condition at Discharge: Serious Plan - Discharge Summary Discharge Rx Participant: No New Discharge Prescriptions: New RX: predniSONE 10 mg PO DIRECTED #40 tab RX: Doxycycline [Vibramycin] 100 mg PO BID 7 Days #14 cap RX: Albuterol Inhaler [Ventolin Hfa Inhaler] 1 - 2 puff INHALATION Q6H PRN #1 each PRN Reason: Shortness Of Breath Or Wheezing Continue RX: Spironolactone [Aldactone] 12.5 mg PO DAILY@1700 RX: Simvastatin [Zocor] 40 mg PO DAILY@170 RX: Metoprolol Tartrate 25 mg PO DAILY@170 RX: Potassium Chloride [Klor-Con 20] 20 meq PO DAILY@1700 RX: Furosemide [Lasix] 20 mg PO DAILY@170 RX: Digoxin [Lanoxin] 250 mcg PO DAILY@1700 RX: captopriL [Capoten] 12.5 mg PO DAILY@1700 Discharge Medication List RX: Digoxin [Lanoxin] 250 mcg PO DAILY@169901/17/16 [History] RX: Furosemide [Lasix] 20 mg PO DAILY@169901/17/16 [History] RX: Metoprolol Tartrate 25 mg PO DAILY@169901/17/16 [History] RX: Potassium Chloride [Klor-Con 20] 20 meq PO DAILY@169901/17/16 [History] RX: Simvastatin [Zocor] 40 mg PO DAILY@169901/17/16 [History] RX: Spironolactone [Aldactone] 12.5 mg PO DAILY@169901/17/16 [History] RX: captopriL [Capoten] 12.5 mg PO DAILY@169901/17/16 [History] RX: Albuterol Inhaler [Ventolin Hfa Inhaler] 1 - 2 puff INHALATION Q6H PRN #1 each 06/23/22 [Rx] RX: Doxycycline [Vibramycin] 100 mg PO BID 7 Days #14 cap 06/23/22 [Rx] RX: predniSONE 10 mg PO DIRECTED #40 tab 06/23/22 [Rx] Follow up Appointment(s)/Referral(s): Danny Freire DO [Doctor of Osteopathic Medicine] - 07/15/22 9:00 am James Guillen DO [Primary Care Provider] - 06/26/22 2:00 pm Patient Instructions/Handouts: Doxycycline (By mouth), Prednisone (By mouth) Activity/Diet/Wound Care/Special Instructions: Low carbohydrate diet Activity is restricted till you see your doctor Discharge Disposition: HOME SELF-CARE
== END 2022-06-23 15:54 | disposition home or self-care (01) | DRG 202 ==
LOC: EC 16:32 → 4SSUR 18:47 → 5NMEDONC 06-21 06:26
PROVIDERS: ADMIT Hospitalist; ATTEND Hospitalist
DX: J20.9 Acute bronchitis, unspecified (principal); J96.01 Acute respiratory failure with hypoxia; I42.9 Cardiomyopathy, unspecified; I11.0 Hypertensive heart disease with heart failure; I50.9 Heart failure, unspecified; Z20.822 Contact with and (suspected) exposure to COVID-19; Z28.310 Unvaccinated for COVID-19; E78.5 Hyperlipidemia, unspecified; I25.10 Atherosclerotic heart disease of native coronary artery without angina pectoris; I25.2 Old myocardial infarction; L98.9 Disorder of the skin and subcutaneous tissue, unspecified; Z79.899 Other long term (current) drug therapy; Z95.810 Presence of automatic (implantable) cardiac defibrillator; Z95.5 Presence of coronary angioplasty implant and graft
CPT/HCPCS: 36415; 71045; 80048; 80053; 83605; 83735; 83880; 84484; 85025; 85379; 85610; 85730; 87636; 93005; 94640; 94760; 96374; 99285; 99291